=== PATIENT | male | born 1960 | race Caucasian/White ===

== ENCOUNTER → 2021-07-12 | Outpatient (CLI) | payer OTHER, SELFPAY ==
--- NOTE | 2021-07-12 | LES_PTH ---
PATIENT: NATA JEFFRIES LOC: [facility] U#:[id number] AGE/SX: 60/M ROOM: RE07/12/[address]: Dr. Flip Harrington DDS : 1960 BED: DIS: 07/12/2021 SPEC #: [id number] RECD: 07/12/21 10:21 STATUS: BERNABE REVenkata #: [id number] ROSA: 07/12/21 00:[address]: Flip Harrington DEPT: SURGICAL PATHOLOGY RECD BY: Radha Jose ENTERED: 07/12/21 12:11 SP TYPE: Lesion OTHR DR: Dr. Jhony Mehta MD Tissues: Skin of lip, NOS Procedures: Special Stain Group I Surgery Specimen Level IV GMS Stain (control) HEADER OPERATION: Lip biopsy PRE-OP DIAGNOSIS: Nonhealing lip ulcer, greater than six-months duration TISSUE SUBMITTED: Lower lip MICROSCOPIC DIAGNOSIS Skin lesion of lower lip, biopsy: Ulceration with associated acute and chronic inflammation and early granulation. Mild acanthosis. Negative for fungal organisms. See comment. AM:sundeep 07/13/2021 COMMENT GMS stain with matched control was used in the evaluation of this case. Case has been reviewed in consultation with Dr. Dawkins who concurs with the above diagnosis. IDC:[email or web address] MICROSCOPIC DESCRIPTION Slides are reviewed. GROSS DESCRIPTION Received in fixative is one container labeled with the patient's name and designated lip. The specimen consists of a piece of lombardi-white skin ellipse measuring 1.3 x 0.5 x 0.2 cm. The specimen is inked, serially sectioned and submitted entirely in one cassette. / SAMANTHA:sundeep 07/12/2021 TC:2 CPT: 97620, 13049
== END | disposition home or self-care (01) ==
PROVIDERS: PCP Family Medicine; Visit Provider Dentist Oral and Maxillofacial Surgery
DX: K13.0 Diseases of lips (principal)
CPT/HCPCS: 88305; 88312

== ENCOUNTER → 2023-01-16 | Outpatient (CLI) | payer OTHER, SELFPAY | END | disposition home or self-care (01) | LOC: SL 20:27 | PROVIDERS: PCP Family Medicine; Referring Provider Internal Medicine; Visit Provider Internal Medicine | DX: G47.33 Obstructive sleep apnea (adult) (pediatric) (principal) | CPT/HCPCS: 95810 ==